=== PATIENT | female | born 1995 ===

== ENCOUNTER → 2017-11-01 | Outpatient (CLI) | payer SELFPAY | LOC: LAB SHORT 15:17 | DX: R07.9 Chest pain, unspecified (principal) | CPT/HCPCS: 84484; 85379 ==

== ENCOUNTER → 2017-11-28 | Outpatient (CLI) | payer BC | END | disposition home or self-care (01) | LOC: LAB SHORT 15:08 → LAB EV 15:08 | DX: A60.9 Anogenital herpesviral infection, unspecified (principal) | CPT/HCPCS: 87070; 87077; 87147; 87186; 87205 ==